=== PATIENT | female | born 1945 | race Caucasian/White ===

== ENCOUNTER 2019-03-14 10:35 | Emergency (ER) | payer OTHER ==
[2019-03-14] MEDS ORDERED: NITROGLYCERIN 0.4 MG TAB SL ONE (10:43)
[2019-03-14] MEDS ORDERED: ASPIRIN 81 MG CHEWABLE CTB ONE (10:43)
[2019-03-14] MEDS: NITROGLYCERIN 0.4 MG TAB SL PRN ×3 (10:45→10:55)
[2019-03-14] MEDS ORDERED: ASPIRIN 81 MG CHEWABLE CTB PO ONE (10:48)
[2019-03-14 11:02] LABS: BASOPHILS % (AUTO) 2 % (0-3); EOSINOPHILS % (AUTO) 3 % (0-9); HEMATOCRIT 44 % (35-47); LYMPHOCYTES % (AUTO) 25.1 % (10-50); MEAN CORPUSCULAR HEMOGLOBIN 29.2 pg (27.0-32.0); MEAN CORPUSCULAR HGB CONC 31.9 gm/dl (32.0-36.0); MEAN CORPUSCULAR VOLUME 91 fL (81-99); MONOCYTES % (AUTO) 7.1 % (0-12); NEUTROPHILS % (AUTO) 63.1 % (37-80)
[2019-03-14 11:14] LABS: INR 1.12 (0.86-1.12)
[2019-03-14 11:15] LABS: BLOOD UREA NITROGEN 16 mg/dl (7-18); CALCIUM 9.1 mg/dl (8.5-10.1); CHLORIDE 103 mMol/L (98-107); CREATININE 1.02 mg/dl (0.60-1.00); GLUCOSE 102 mg/dl (74-106); POTASSIUM 3.9 mMol/L (3.5-5.1); SODIUM 142 mMol/L (136-145); TROP I < 0.017 ng/ml (0.000-0.056)
[2019-03-14 11:30] VITALS: O2SAT 96
[2019-03-14 11:39] VITALS: TEMP 98.4
[2019-03-14 13:43] VITALS: BP 141/75; PULSE 42; RESP 18
== END 2019-03-14 13:15 | disposition home or self-care (01) | DRG 313 ==
LOC: ED 10:35
DX: R07.9 Chest pain, unspecified (principal)
CPT/HCPCS: 71045; 71275; 80048; 84484; 85025; 85610; 85730; 93005; 99285; 99291; Q9967; A9270-GY